=== PATIENT | female | born 1995 | race Caucasian/White ===

== ENCOUNTER 2017-01-08 04:04 | Inpatient (IN) | payer SELFPAY ==
[2017-01-08] MEDS ORDERED: NS 2,000 ML IV ONE (04:14)
[2017-01-08] MEDS ORDERED: ONDANSETRON 4 MG/2 ML VIAL IVP ONE (04:14)
--- NOTE | 2017-01-08 04:14 | EDPHY ---
H & P Stated Complaint: c/o R sided back pain and painful urination x 5 days, dx with uti yest HPI/ROS: HPI CHIEF COMPLAINT: Nausea, vomiting, recent urinary tract infection HISTORY OF PRESENT ILLNESS: This patient 21-year-old female otherwise healthy does not take any daily medications, she presents emergency room with ongoing bilateral flank pain worse on the right than left with associated nausea vomiting fever and not feeling well. She states around 1030AM earlier in the morning she developed dysuria and worsening right flank pain decided to go to urgent care where she was diagnosed with a kidney infection and given Levaquin. She went home was home around noon yesterday at 5 o'clock started feeling more ill. She was able to sleep slightly last night woke up at 3:00 a.m. or approximately an hour and half ago with worsening high fever generalized weakness nausea vomiting worsening bilateral flank pain. She decided come to the emergency room. Upon arrival to the emergency room she is noted to be somewhat ill-appearing, heart rate in the 140s, blood pressure is low in the 80s, and she is febrile to 39 degrees. She does tell me she has bilateral CVA pain with associated nausea vomiting. Denies chest pain or shortness of breath. denies being . Past Medical History: No significant medical history Past Surgical History: Denies recent surgical history Social History: denies daily use drugs alcohol tobacco products. Family History: Noncontributory ROS REVIEW OF SYSTEMS: A comprehensive 10 point review of systems is otherwise negative aside from elements mentioned in the history of present illness. Exam Constitutional appears nontoxic, however vital signs noted, triage nursing summary reviewed, vital signs reviewed, awake/alert. Vital signs noted increased heart rate, low blood pressure, fever Eyes normal conjunctivae and sclera, EOMI, PERRLA. HENT normal inspection, atraumatic, moist mucus membranes, no epistaxis, neck supple/ no meningismus, no raccoon eyes. Respiratory clear to auscultation bilaterally, normal breath sounds, no respiratory distress, no wheezing. Cardiovascular tachycardic,regular rhythm, no murmur, no edema, distal pulses normal. Gastrointestinal soft, non-tender, no rebound, no guarding, normal bowel sounds, no distension, no pulsatile mass. Genitourinary no CVA tenderness. Musculoskeletal no midline vertebral tenderness, full range of motion, no calf swelling, no tenderness of extremities, no meningismus, good pulses, neurovascularly intact. Skin pink, warm, & dry, no rash, skin atraumatic. Neurologic awake, alert and oriented x 3, AAOx3, moves all 4 extremities equally, motor intact, sensory intact, CN II-XII intact, normal cerebellar, normal vision, normal speech. Psychiatric normal mood/affect. Heme/Lymph/Immune no lymphadenopathy. 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 Re-evaluate closely. Re-evaluation: 0538AM: Patient just completed 2 L fluid bolus. Will repeat her lactic acid. Urinalysis pending at this time. Blood cultures have been pulled. I have reviewed her blood work so for white count elevated 19,000, elevated lactic acid. She will need to be admitted the hospital for urinary tract infection, pyelonephritis and sepsis. Will speak with the hospitalist service about admission. 0605AM: Patient is doing better. Blood pressure did come up to 101 systolic. Heart rate is improving. She is feeling better. She will be admitted to the hospital for UTI with sepsis. Pyelonephritis. Spoke with the hospitalist service Dr. Chavez agrees to admit the patient. IV Rocephin has been given. I am repeating lactic at this time. She has finished 2 L bolus. Critical Care: Total Critical Care Time Spent Managing this Patient: 65 Minutes. This time was spent Exclusively with this patient. This Care was exclusive of procedures. The Organ System/life at risk was tractk This Patient was in Critical Condition because Sepsis, UTI, Pyelo. Requiring Resuscitation. Source: Patient - Medical/Surgical History Hx Asthma: No Hx Chronic Respiratory Disease: No Hx Diabetes: No Hx Cardiac Disease: No Hx Renal Disease: No Hx Cirrhosis: No Hx Alcoholism: No Hx HIV/AIDS: No Hx Splenectomy or Spleen Trauma: No Other PMH: none - Social History Smoking Status: Never smoked Constitutional: Initial Vital Signs Temperature (C) 39.5 C H 01/08/17 04:08 Heart Rate 146 H 01/08/17 04:08 Respiratory Rate 16 01/08/17 04:08 Blood Pressure 86/64 L 01/08/17 04:08 O2 Sat (%) 99 01/08/17 04:08 O2 Delivery Mode Room Air Allergies/Adverse Reactions: No Known Allergies Allergy (Verified 01/08/17 04:11) Home Medications: Medication Instructions Recorded Acetaminophen [Tylenol ES 500 mg 1,000 mg PO PRN PRN 01/08/17 (*)] Ibuprofen [Motrin (*)] 200 mg PO PRN PRN 01/08/17 Promethazine HCl [Phenergan 12.5mg 12.5 mg PO Q6 PRN #30 tablet 01/11/17 tab] Sulfamethox/Tmp 800/160 mg 1 tab PO BID #14 tab 01/11/17 [Bactrim Ds] Medical Decision Making - Data Points Laboratory Results: Laboratory Results 01/08/17 04:30 01/08/17 04:30 Microbiology Results: MICROBIOLOGY 01/08/17 05:00 Blood Blood Culture - Final 01/08/17 04:30 Blood Blood Culture - Final Medications Given: Discontinued Medications Acetaminophen (Tylenol) 1,000 mg PO EDNOW ONE Stop: 01/08/17 04:16 Last Admin: 01/08/17 07:32 Dose: Not Given Acetaminophen (Tylenol) 650 mg PO Q4HRS PRN PRN Reason: Pain, Mild/Fever, Can Take PO Stop: 07/07/17 07:51 Last Admin: 01/09/17 05:15 Dose: 650 mg Acetaminophen (Tylenol) 1,000 mg PO Q8 [facility] Stop: 07/08/17 08:45 Last Admin: 01/11/17 16:22 Dose: 1,000 mg Alteplase, Recombinant (Cathflo Activase) 2 mg IVP PRN PRN PRN Reason: Per PICC line policy Stop: 07/07/17 10:03 Last Admin: 01/11/17 05:24 Dose: 2 mg Enoxaparin Sodium (Lovenox) 40 mg SC DAILY [facility] Stop: 07/07/17 08:59 Last Admin: 01/11/17 09:17 Dose: 40 mg Fentanyl (Sublimaze) 50 mcg IVP EDNOW ONE Stop: 01/08/17 04:26 Last Admin: 01/08/17 04:40 Dose: 50 mcg Hydromorphone HCl (Dilaudid) 0.2 - 0.4 mg IVP Q4HRS PRN PRN Reason: Pain, Severe Unable to Take PO Stop: 01/18/17 07:51 Last Admin: 01/10/17 02:04 Dose: 0.2 mg Sodium Chloride (Ns) 2,000 mls @ 0 mls/hr IV EDNOW ONE; Wide Open PRN Reason: Protocol Stop: 01/08/17 04:15 Last Admin: 01/08/17 04:31 Dose: 2,000 mls Ceftriaxone Sodium/Dextrose (Rocephin 1 Gm (Premix)) 50 mls @ 100 mls/hr IV EDNOW ONE PRN Reason: Protocol Stop: 01/08/17 04:44 Last Admin: 01/08/17 05:45 Dose: 50 mls Sodium Chloride (Ns) 1,000 mls @ 0 mls/hr IV ONCE ONE PRN Reason: Wide Open Stop: 01/08/17 06:28 Last Admin: 01/08/17 06:39 Dose: 1,000 mls Sodium Chloride (Ns) 1,000 mls @ 200 mls/hr IV CONT RAJESH Stop: 07/07/17 07:59 Last Admin: 01/10/17 05:37 Dose: 1,000 mls Ceftriaxone Sodium/Dextrose (Rocephin 1 Gm (Premix)) 50 mls @ 100 mls/hr IV DAILY RAJESH PRN Reason: Protocol Stop: 02/08/17 08:59 Last Admin: 01/11/17 09:17 Dose: 50 mls Norepinephrine/Sodium Chloride (Norepinephrine 8 Mcg/Ml (Premix)) 500 mls @ 0 mls/hr IV CONT RAJESH; Titrate PRN Reason: Protocol Stop: 07/07/17 10:29 Last Admin: 01/09/17 07:55 Dose: 500 mls Sodium Chloride (Ns) 1,000 mls @ 200 mls/hr IV CONT RAJESH Stop: 07/09/17 23:14 Last Admin: 01/10/17 23:28 Dose: 1,000 mls Ibuprofen (Motrin) 800 mg PO EDNOW ONE Stop: 01/08/17 04:19 Last Admin: 01/08/17 04:41 Dose: 800 mg Lorazepam (Ativan Injection) 1 mg IV ONCE ONE Stop: 01/11/17 12:31 Last Admin: 01/11/17 12:45 Dose: 1 mg Meperidine HCl (Demerol 25 Mg/Ml Syringe) 25 mg IVP ONCE ONE Stop: 01/09/17 20:59 Last Admin: 01/10/17 05:12 Dose: Not Given Ondansetron HCl (Zofran) 4 mg IVP EDNOW ONE Stop: 01/08/17 04:15 Last Admin: 01/08/17 04:41 Dose: 4 mg Ondansetron HCl (Zofran) 4 mg IVP Q4HRS PRN PRN Reason: Nausea/Vomiting, Can't Take PO Stop: 07/07/17 07:51 Last Admin: 01/10/17 19:37 Dose: 4 mg Oxycodone HCl (Oxycodone Ir) 10 mg PO Q4HRS PRN PRN Reason: Pain, Severe Able to Take PO Stop: 01/19/17 08:44 Last Admin: 01/10/17 19:37 Dose: 10 mg Promethazine HCl (Phenergan) 6.25 mg IVP Q6HRS PRN PRN Reason: Nausea/Vomiting, Can't Take PO Stop: 07/09/17 09:58 Last Admin: 01/11/17 09:03 Dose: 6.25 mg Promethazine HCl (Phenergan Rectal) 25 mg [place] ONCE ONE Stop: 01/11/17 09:29 Last Admin: 01/11/17 12:51 Dose: Not Given Departure - Departure Disposition: [facility] Acute Clinical Impression: Pyelonephritis Sepsis Qualifiers: Sepsis type: sepsis due to unspecified organism Qualified Code(s): A41.9 - Sepsis, unspecified organism Condition: Fair
[2017-01-08] MEDS ORDERED: ACETAMINOPHEN 500 MG TAB PO ONE (04:15)
[2017-01-08] MEDS ORDERED: IBUPROFEN 200 MG TAB PO ONE (04:18)
[2017-01-08] MEDS ORDERED: fentaNYL 100 MCG/2 ML INJ IVP ONE (04:25)
[2017-01-08 04:41] LABS: % IMMATURE GRANULYOCYTES 0.6 % (0.0-1.1); ABSOLUTE IMMATURE GRANULOCYTES 0.11 10^3/uL (0.00-0.10); ADD DIFF? NO; ADD MORPH? NO; ADD SCAN? NO; ATYPICAL LYMPHOCYTE FLAG 60 (0-99); FRAGMENT RBC FLAG 0 (0-99); HEMATOCRIT 36.7 % (38.0-47.0); HEMOGLOBIN 11.8 g/dL (12.6-16.3); LEFT SHIFT FLG 90 (0-99); LIPEMIA HEMOLYSIS FLAG 80 (0-99); MEAN CELL HEMOGLOBIN 26.9 pg (27.9-34.1); MEAN CELL HEMOGLOBIN CONCENTR. 32.2 g/dL (32.4-36.7); MEAN CELL VOLUME 83.8 fL (81.5-99.8); PLATELET CLUMPS FLAG 0 (0-99); PLATELET COUNT 257 10^3/uL (150-400); RED BLOOD CELL COUNT 4.38 10^6/uL (4.18-5.33); RED CELL DISTRIBUTION WIDTH 14.7 % (11.5-15.2)
[2017-01-08 04:50] LABS: INR 1.5 (0.83-1.16); PROTIME(PATIENT) 18.1 SEC (12.0-15.0)
[2017-01-08 04:51] LABS: APTT 34.4 SEC (23.0-38.0)
[2017-01-08 04:55] LABS: ALANINE AMINOTRANSFERASE 24 IU/L (9-52); ALBUMIN 3.5 g/dL (3.5-5.0); ALKALINE PHOSPHATASE 66 IU/L (38-126); ANION GAP 15 mEq/L (8-16); ASPARTATE AMINOTRANSFERASE 21 IU/L (14-46); BILIRUBIN,TOTAL 0.8 mg/dL (0.1-1.4); BILIRUBIN-CONJUGATED 0.3 mg/dL (0.0-0.5); BILIRUBIN-UNCONJUGATED 0.5 mg/dL (0.0-1.1); CALCIUM 8.5 mg/dL (8.5-10.4); CARBON DIOXIDE 17 mEq/l (22-31); CHLORIDE 107 mEq/L (97-110); GLOMERULAR FILTRATION RATE > 60; GLUCOSE 120 mg/dL (70-100); POTASSIUM 4.1 mEq/L (3.5-5.2); SODIUM 139 mEq/L (134-144); TOTAL PROTEIN 6.4 g/dL (6.3-8.2)
[2017-01-08] MEDS ORDERED: NS 1,000 ML IV ONE (06:27)
[2017-01-08 06:36] LABS: COLOR YELLOW; LEUKOCYTE ESTERASE,URINE 1+ (NEGATIVE); NITRITE,URINE NEGATIVE (NEGATIVE)
[2017-01-08 06:42] LABS: BACTERIA 2+ /hpf (NONE SEEN); MUCUS TRACE /lpf (NONE-1+); RBC,URINE 50-182 /hpf (0-3); WBC,URINE 50-182 /hpf (0-3)
[2017-01-08] MEDS ORDERED: ONDANSETRON DISINTEGRATING 4 MG TAB PO PRN (07:52)
--- NOTE | 2017-01-08 08:36 | GHP ---
[f rep st] HISTORY AND PHYSICAL DATE OF ADMISSION: 01/08/2017 HISTORY OF PRESENT ILLNESS: The patient is a pleasant 21-year-old female with no past medical histo ry, presents with 10 days of urinary symptoms followed by about a day and a half of back pain, and t hen she saw Urgent Care yesterday where she was given a prescription for levofloxacin. She returned home, and then she had an episode of vomiting. She has also had some subjective fevers and chills and back pain. She has had some shortness of breath associated with deep inspiration. She has no p revious past medical history. She does not have a long history of urinary tract infections. REVIEW OF SYSTEMS: Complete 10-point review of systems conducted negative except as noted in the HP I. PAST MEDICAL HISTORY: None. ALLERGIES: None. HOME MEDICATIONS: None. SOCIAL HISTORY: [employer] student. No tobacco, rare alcohol, although I noticed she has an alcohol-relate d ER visit. FAMILY HISTORY: Reviewed and unremarkable. PHYSICAL EXAMINATION: PRESENTING VITALS: Temp 39.5, blood pressure 86/54, pulse 146, breathing 16 times a minute, 98% on room air. Pulse is now 100, and her blood pressure is 85. She is . GENERAL: No acute distress. HEENT: Sclerae anicteric. Oropharynx clear. Mucous membranes ar e moist. NECK: Supple without lymphadenopathy or JVD. LUNGS: Clear to auscultation bilaterally. HEART: S1, S2. ABDOMEN: Soft, nontender, nondistended. There is CVA tenderness bilaterally. EX TREMITIES: Lower extremities without edema. Calves nontender. SKIN: Without rash. NEUROLOGIC: Nonfocal. LABORATORY DATA: White count 19 with a left shift, hematocrit 36, platelets are 257,000. INR is 1. 5. Venous lactate 3.2 at 4:30 in the morning, now at 1.3 at 6:20 in the morning. Sodium 139, potas sium 4.1, chloride 107, bicarb 17, BUN 9, creatinine 1.0, anion gap 15, glucose 120, LFTs and lipase are normal. Urinalysis shows -180 red cells, white cells. There is no imagi ng. I have discussed the case with Dr. Rudolph Longoria. ASSESSMENT/PLAN: A 21-year-old female presents with pyelonephritis and sepsis. 1. Sepsis. Source is pyelonephritis. She received the appropriate fluid bolus with decrease in he r serum lactate, I think from relatively low blood pressures due to her young age. 2. Pyelonephritis. This is a urinary source. She received ceftriaxone in the emergency department . I will continue it. 3. Tachycardia secondary to distributive shock from sepsis, improving. We will continue IV fluid s upport. 4. Prophylaxis. She is moderate risk given her degree of illness. Will start her on low-molecular heparin prophylaxis. 5. Disposition: Stepdown unit inpatient. /[id number]/MODL
[2017-01-08] MEDS: HYDROmorphONE/DILAUDID 1 MG/ML SYR IVP PRN ×3 (09:12→22:09)
[2017-01-08] MEDS: ENOXAPARIN 40 MG/0.4 ML SYR SC SCH (09:13)
[2017-01-08] MEDS ORDERED: ALTEPLASE 2 MG VIAL IVP PRN (10:04)
[2017-01-08 13:37] LABS: MIXED VENOUS O2 SATURATION 94 % (65-75)
--- NOTE | 2017-01-08 15:02 | GCON ---
[f rep st] CONSULTATION MOBILITY ARCHITECT CONSULTATION REASON FOR ADMISSION: Urinary tract infection, pyelonephritis, sepsis. HISTORY OF PRESENTING ILLNESS: The patient is an extremely pleasant 21-year-old female without any known past medical history. She presents with 10 days of increasing urinary tract symptoms which is associated with right low back pain. She was seen in the urgent care the day before admission, beg an on levofloxacin. She had some nausea and vomiting thereafter, and returned for medical care. He r blood pressure was somewhat low in the emergency room, and she was subsequently admitted. In discussion with the patient, she states overall she feels somewhat better. Her appetite is impro ving. Her low back pain is still present but tolerable. She denies any chest pain, pleuritic-type chest pain or angina equivalent. No fever or night sweats. She did have some fevers and chills dave or to this, but these have resolved. PAST MEDICAL HISTORY: None. PAST SURGICAL HISTORY: None. ALLERGIES: None known to medications. SOCIAL HISTORY: No history of tobacco use. Infrequent alcohol use. Work history: She is a [employer], is currently doing an quality internship. She is single, without children. MEDICATION AT HOME: Levofloxacin. PHYSICAL EXAM: VITAL SIGNS: Blood pressure is 71/42, pulse is 92, respirations 21, temperature 37. 1, oxygen saturation 97% on room air. GENERAL: She is a well-developed, well-nourished 21-year-old female, who is resting comfortably with mild low back pain. HEENT: Eyes are CHRISTINA, EOMI. Throat s hows no erythema or tonsillar hypertrophy. NECK: Supple. No cervical adenopathy. HEART: Regular rate and rhythm without murmurs, rubs, or gallops. LUNGS: Clear to auscultation. No wheeze or rh onchi. ABDOMEN: Soft, nontender. She does have some right CVA tenderness. Bowel sounds are prese nt. EXTREMITIES: No clubbing, cyanosis, or edema. LABORATORIES: White count is 19,000, hemoglobin 11, hematocrit 36, platelet count is 257. INR is 1 .5. Sodium 139, potassium 4.1, chloride 107, CO2 is 17, BUN 9, creatinine 1, glucose is 120. Urina lysis pH is 5, specific gravity 1.014, 2+ protein, 2+ blood, 50-182 rbc's, 2+ bacteria. IMPRESSION: 1. Urinary tract infection with probable pyelonephritis. 2. Hypotension. 3. The patient does not appear septic at this time. RECOMMENDATIONS: 1. Continue current antibiotic coverage. 2. Increase IV fluids. 3. We will check an ultrasound of her kidneys. 4. DVT and PE prophylaxis. 5. Stress ulcer prophylaxis. 6. Ambulation. /[id number]/MODL
--- NOTE | 2017-01-08 15:41 | HOSPPROG ---
Hospitalist Progress Note Assessment/Plan: #Severe sepsis: due to pyelo. Aggressive IVF, PICC line. Sepsis protocol. Ceftriaxone. U/S pending #Leukocytosis: due to above. urine/blood cultures pending #Lactic acidosis: due to sepsis. Resolved with IVFs #Tachycardia: resolved #Hypotension: dehydration, sepsis. Improving with IVFs #Fever: due to pyelo #Diet: regular #DVT ppx: Lovenox Disp: warrants ICU admission with severe sepsis, requires IV abx and IVFs Critical care time spent: 30 min evaluating bedside, coordinating PICC and tx plan Subjective: c/o flank pain. Dizzy with standing Objective: Vital Signs Temp Pulse Resp BP Pulse Ox 36.6 C 87 22 H 86/53 L 99 01/08/17 12:00 01/08/17 13:27 01/08/17 13:27 01/08/17 13:27 01/08/17 13:27 01/07/17 01/08/17 01/09/17 05:59 05:59 05:59 Intake Total 3000 Balance 3000 PT 18.1 SEC (12.0-15.0) H 01/08/17 04:30 INR 1.50 (0.83-1.16) H 01/08/17 04:30 - Physical Exam Constitutional: no apparent distress, other Eyes: PERRL Ears, Nose, Mouth, Throat: dry mucous membranes Cardiovascular: regular rate and rhythym, no murmur, rub, or gallop Respiratory: no respiratory distress, no rales or rhonchi Gastrointestinal: normoactive bowel sounds, soft, non-tender abdomen Genitourinary: other (right suprapubic and BL CVA TTP) Skin: warm Musculoskeletal: full muscle strength Neurologic: AAOx3, CN II-XII Intact Psychiatric: interacting appropriately ICD10 Worksheet Patient Problems: Problems Problem Status Onset Pyelonephritis Acute Sepsis Acute
[2017-01-08] MEDS: ACETAMINOPHEN 325 MG TAB PO PRN ×2 (18:12→22:09)
[2017-01-08 18:23] LABS: MIXED VENOUS O2 SATURATION 95 % (65-75)
[2017-01-08 18:41] LABS: MIXED VENOUS O2 SATURATION 95 % (65-75)
[2017-01-08] MEDS: NOREPINEPHRINE/NS 500 ML IV SCH (19:26)
[2017-01-09 04:25] LABS: ADD DIFF? YES; ADD MORPH? NO; ATYPICAL LYMPHOCYTE FLAG 0 (0-99); FRAGMENT RBC FLAG 0 (0-99); HEMATOCRIT 33.3 % (38.0-47.0); HEMOGLOBIN 10.5 g/dL (12.6-16.3); LIPEMIA HEMOLYSIS FLAG 80 (0-99); MEAN CELL HEMOGLOBIN 26.9 pg (27.9-34.1); MEAN CELL HEMOGLOBIN CONCENTR. 31.5 g/dL (32.4-36.7); MEAN CELL VOLUME 85.2 fL (81.5-99.8); MEAN PLATELET VOLUME 10.3 fL (8.7-11.7); PLATELET CLUMPS FLAG 0 (0-99); PLATELET COUNT 264 10^3/uL (150-400); RED BLOOD CELL COUNT 3.91 10^6/uL (4.18-5.33); RED CELL DISTRIBUTION WIDTH 15.2 % (11.5-15.2)
[2017-01-09 04:36] LABS: ADD SCAN? NO; LEFT SHIFT FLG 220 (0-99)
[2017-01-09 04:38] LABS: ANION GAP 9 mEq/L (8-16); CALCIUM 7.2 mg/dL (8.5-10.4); CARBON DIOXIDE 16 mEq/l (22-31); CHLORIDE 116 mEq/L (97-110); CREATININE 0.8 mg/dL (0.6-1.0); GLOMERULAR FILTRATION RATE > 60; GLUCOSE 122 mg/dL (70-100); POTASSIUM 4.1 mEq/L (3.5-5.2); SODIUM 141 mEq/L (134-144)
[2017-01-09] MEDS: ACETAMINOPHEN 325 MG TAB PO PRN (05:15)
[2017-01-09 05:18] LABS: PLATELET ESTIMATE ADEQUATE (ADEQ)
[2017-01-09 05:22] LABS: HYPOCHROMIA 1+; MICROCYTES 1+
[2017-01-09] MEDS: HYDROmorphONE/DILAUDID 1 MG/ML SYR IVP PRN (05:27)
[2017-01-09] MEDS: NOREPINEPHRINE/NS 500 ML IV SCH (07:55)
[2017-01-09] MEDS: ENOXAPARIN 40 MG/0.4 ML SYR SC SCH (08:41)
--- NOTE | 2017-01-09 08:50 | HOSPPROG ---
Hospitalist Progress Note Assessment/Plan: 21 yo f w pyelonephritis and sepsis sepsis: source is urine on levophed will tolerate MAP of 60 given lowish baseline bp lactate improved pyelonephritis: continue ceftriaxone day 07/20 abx Ucx, blood cx pending tachycardia: sinus suspect 07/12 sepsis but check tsh for completeness proph: lmwh dispo: stepdown Subjective: case d/w dr bridges. tele: AF (interp by id). remains on levophed Objective: Vital Signs Temp Pulse Resp BP Pulse Ox 37.9 C 94 21 H 100/67 94 01/09/17 08:00 01/09/17 08:00 01/09/17 08:00 01/09/17 08:00 01/09/17 08:00 Laboratory Results 01/09/17 03:50 01/09/17 03:50 01/08/17 01/09/17 01/10/17 05:59 05:59 05:59 Intake Total 34694 Output Total 2700 Balance 41230 PT 18.1 SEC (12.0-15.0) H 01/08/17 04:30 INR 1.50 (0.83-1.16) H 01/08/17 04:30 - Physical Exam Constitutional: no apparent distress, appears nourished Eyes: PERRL, anicteric sclera Ears, Nose, Mouth, Throat: moist mucous membranes, hearing normal Cardiovascular: no murmur, rub, or gallop, tachycardia Respiratory: no respiratory distress, other (scattered crackles) Gastrointestinal: normoactive bowel sounds, soft, non-tender abdomen Genitourinary: no bladder fullness, No ledesma in urethra Skin: warm, normal color Musculoskeletal: full muscle strength, no muscle tenderness Neurologic: AAOx3 ICD10 Worksheet Patient Problems: Problems Problem Status Onset Pyelonephritis Acute Sepsis Acute
[2017-01-09] MEDS: oxyCODONE IR 5 MG TAB PO PRN ×3 (09:08→20:02)
--- NOTE | 2017-01-09 09:21 | PDINTPN ---
Hospice Admitting Clerk Progress Note Assessment/Plan: Assessment/Plan: * Urinary tract infection-continue current antibiotics * Pyelonephritis * Shock-improved since yesterday -wean off Levophed likely today * Out of bed to chair. Begin ambulating in the halls. Subjective: Feels markedly improved. Still complaining of some right-sided low back pain. Objective: Vital Signs Temp Pulse Resp BP Pulse Ox 37.9 C 94 21 H 100/67 94 01/09/17 08:00 01/09/17 08:00 01/09/17 08:00 01/09/17 08:00 01/09/17 08:00 Laboratory Results 01/09/17 03:50 01/09/17 03:50 01/08/17 01/09/17 01/10/17 05:59 05:59 05:59 Intake Total 77087 Output Total 2700 Balance 31870 PT 18.1 SEC (12.0-15.0) H 01/08/17 04:30 INR 1.50 (0.83-1.16) H 01/08/17 04:30 Physical Exam - Physical Exam General Appearance: WD/WN, alert, no apparent distress EENT: PERRL/EOMI, normal ENT inspection, pharynx normal, TMs normal Neck: non-tender, full range of motion, supple, normal inspection Respiratory: chest non-tender, lungs clear, normal breath sounds Cardiac/Chest: normal peripheral pulses, regular rate, rhythm Abdomen: normal bowel sounds, non-tender, soft Pelvic Exam: deferred Rectal: deferred ICD10 Worksheet Patient Problems: Problems Problem Status Onset Pyelonephritis Acute Sepsis Acute
[2017-01-09] MEDS: ACETAMINOPHEN 500 MG TAB PO SCH ×2 (12:59→21:16)
[2017-01-09] MEDS: NS 1,000 ML IV SCH ×2 (12:59→17:09)
[2017-01-09] MEDS ORDERED: MEPERIDINE 25 MG/ML SYR IVP ONE (20:58)
[2017-01-09] MEDS: ONDANSETRON 4 MG/2 ML VIAL IVP PRN (21:55)
[2017-01-10] MEDS: HYDROmorphONE/DILAUDID 1 MG/ML SYR IVP PRN (02:04)
[2017-01-10] MEDS: NS 1,000 ML IV SCH ×2 (02:04→05:37)
[2017-01-10] MEDS: ACETAMINOPHEN 500 MG TAB PO SCH ×3 (05:36→21:03)
[2017-01-10] MEDS: ONDANSETRON 4 MG/2 ML VIAL IVP PRN ×2 (08:05→19:37)
[2017-01-10 09:04] LABS: % IMMATURE GRANULYOCYTES 0.6 % (0.0-1.1); ABSOLUTE IMMATURE GRANULOCYTES 0.11 10^3/uL (0.00-0.10); ADD DIFF? NO; ADD MORPH? NO; ADD SCAN? NO; ATYPICAL LYMPHOCYTE FLAG 30 (0-99); FRAGMENT RBC FLAG 0 (0-99); HEMOGLOBIN 9.6 g/dL (12.6-16.3); LEFT SHIFT FLG 40 (0-99); LIPEMIA HEMOLYSIS FLAG 80 (0-99); MEAN CELL HEMOGLOBIN 27.3 pg (27.9-34.1); MEAN CELL VOLUME 85.2 fL (81.5-99.8); PLATELET CLUMPS FLAG 0 (0-99); PLATELET COUNT 206 10^3/uL (150-400); RED BLOOD CELL COUNT 3.52 10^6/uL (4.18-5.33); RED CELL DISTRIBUTION WIDTH 15.4 % (11.5-15.2)
[2017-01-10 09:21] LABS: ANION GAP 6 mEq/L (8-16); CALCIUM 7.2 mg/dL (8.5-10.4); CARBON DIOXIDE 20 mEq/l (22-31); CHLORIDE 115 mEq/L (97-110); CREATININE 0.8 mg/dL (0.6-1.0); GLOMERULAR FILTRATION RATE > 60; GLUCOSE 85 mg/dL (70-100); POTASSIUM 3.5 mEq/L (3.5-5.2); SODIUM 141 mEq/L (134-144)
--- NOTE | 2017-01-10 09:33 | PDINTPN ---
C.O.D. Biller Progress Note Assessment/Plan: Assessment/Plan: * Urinary tract infection-continue current antibiotics * Pyelonephritis * Shock-resolved * Out of bed to chair. Begin ambulating in the halls. * Disposition-home versus floor Subjective: Comfortable. Objective: Vital Signs Temp Pulse Resp BP Pulse Ox 37.1 C 87 26 H 103/71 91 L 01/10/17 08:00 01/10/17 09:00 01/10/17 09:00 01/10/17 09:00 01/10/17 09:00 Laboratory Results 01/10/17 08:55 01/10/17 08:55 01/09/17 01/10/17 01/11/17 05:59 05:59 05:59 Intake Total 29995 4373.3 Output Total 2700 2950 500 Balance 73576 1423.3 -500 PT 18.1 SEC (12.0-15.0) H 01/08/17 04:30 INR 1.50 (0.83-1.16) H 01/08/17 04:30 Physical Exam - Physical Exam General Appearance: WD/WN, alert, no apparent distress EENT: PERRL/EOMI, normal ENT inspection, pharynx normal, TMs normal Neck: non-tender, full range of motion, supple, normal inspection Respiratory: chest non-tender, lungs clear, normal breath sounds Cardiac/Chest: normal peripheral pulses, regular rate, rhythm Abdomen: normal bowel sounds, non-tender, soft Pelvic Exam: deferred Rectal: deferred Skin: normal color, warm/dry Extremities: normal range of motion, non-tender, normal inspection, normal capillary refill Neuro/Psych: no motor/sensory deficits, alert, normal mood/affect, oriented x 3 ICD10 Worksheet Patient Problems: Problems Problem Status Onset Pyelonephritis Acute Sepsis Acute
[2017-01-10] MEDS: ENOXAPARIN 40 MG/0.4 ML SYR SC SCH (09:59)
--- NOTE | 2017-01-10 10:04 | HOSPPROG ---
Hospitalist Progress Note Assessment/Plan: 21 yo f w pyelonephritis and sepsis sepsis: source is urine septic physiology resolved pyelonephritis: continue ceftriaxone day 08/17 abx Ucx, blood cx pending tachycardia: sinus suspect 2/2 sepsis but check tsh for completeness tsh slightly high resolved proph: lmwh dispo: to floor Subjective: febrile overnight. some nausea. case d/w dr bridges. tele: less tachycardic (interp by me) Objective: Vital Signs Temp Pulse Resp BP Pulse Ox 37.1 C 87 26 H 103/71 91 L 01/10/17 08:00 01/10/17 09:00 01/10/17 09:00 01/10/17 09:00 01/10/17 09:00 Laboratory Results 01/10/17 08:55 01/10/17 08:55 01/09/17 01/10/17 01/11/17 05:59 05:59 05:59 Intake Total 03891 4373.3 Output Total 2700 2950 500 Balance 37703 1423.3 -500 PT 18.1 SEC (12.0-15.0) H 01/08/17 04:30 INR 1.50 (0.83-1.16) H 01/08/17 04:30 - Physical Exam Constitutional: no apparent distress, appears nourished Eyes: PERRL, anicteric sclera Ears, Nose, Mouth, Throat: moist mucous membranes, hearing normal Cardiovascular: regular rate and rhythym, no murmur, rub, or gallop, No tachycardia Respiratory: no respiratory distress, no rales or rhonchi Gastrointestinal: normoactive bowel sounds, soft, non-tender abdomen Genitourinary: No ledesma in urethra Skin: warm, normal color Musculoskeletal: full muscle strength, no muscle tenderness Neurologic: AAOx3, sensation intact bilaterally Psychiatric: interacting appropriately ICD10 Worksheet Patient Problems: Problems Problem Status Onset Pyelonephritis Acute Sepsis Acute
[2017-01-10] MEDS: oxyCODONE IR 5 MG TAB PO PRN (19:37)
[2017-01-10] MEDS: PROMETHAZINE HCL 25 MG/ML INJ IVP PRN (23:14)
[2017-01-10] MEDS ORDERED: NS 1,000 ML IV SCH (23:15)
[2017-01-11] MEDS: ACETAMINOPHEN 500 MG TAB PO SCH ×2 (05:24→16:22)
[2017-01-11 05:39] LABS: % IMMATURE GRANULYOCYTES 0.8 % (0.0-1.1); ABSOLUTE IMMATURE GRANULOCYTES 0.09 10^3/uL (0.00-0.10); ADD DIFF? NO; ADD MORPH? NO; ADD SCAN? NO; ATYPICAL LYMPHOCYTE FLAG 30 (0-99); FRAGMENT RBC FLAG 0 (0-99); HEMATOCRIT 29.3 % (38.0-47.0); HEMOGLOBIN 9.2 g/dL (12.6-16.3); LEFT SHIFT FLG 10 (0-99); LIPEMIA HEMOLYSIS FLAG 80 (0-99); MEAN CELL HEMOGLOBIN 26.2 pg (27.9-34.1); MEAN CELL HEMOGLOBIN CONCENTR. 31.4 g/dL (32.4-36.7); MEAN CELL VOLUME 83.5 fL (81.5-99.8); MEAN PLATELET VOLUME 9.9 fL (8.7-11.7); PLATELET CLUMPS FLAG 10 (0-99); PLATELET COUNT 214 10^3/uL (150-400); RED BLOOD CELL COUNT 3.51 10^6/uL (4.18-5.33); RED CELL DISTRIBUTION WIDTH 15.4 % (11.5-15.2)
[2017-01-11 05:52] LABS: ANION GAP 8 mEq/L (8-16); CALCIUM 7.4 mg/dL (8.5-10.4); CARBON DIOXIDE 21 mEq/l (22-31); CHLORIDE 109 mEq/L (97-110); CREATININE 0.8 mg/dL (0.6-1.0); GLOMERULAR FILTRATION RATE > 60; GLUCOSE 108 mg/dL (70-100); POTASSIUM 3.2 mEq/L (3.5-5.2); SODIUM 138 mEq/L (134-144)
[2017-01-11 07:28] VITALS: RESP 16
[2017-01-11] MEDS: PROMETHAZINE HCL 25 MG/ML INJ IVP PRN (09:03)
[2017-01-11] MEDS: ENOXAPARIN 40 MG/0.4 ML SYR SC SCH (09:17)
[2017-01-11] MEDS ORDERED: PROMETHAZINE HCL 25 MG SUPPR PR ONE (09:28)
--- NOTE | 2017-01-11 09:30 | HOSPPROG ---
Hospitalist Progress Note Assessment/Plan: 21 yo f w pyelonephritis and sepsis sepsis: source is urine septic physiology resolved pyelonephritis: continue ceftriaxone day 08/17 abx Ucx, blood cx pending tachycardia: sinus suspect 2/2 sepsis but check tsh for completeness tsh slightly high resolved proph: lmwh dispo: home today > 30 minutes Subjective: afebrile. nauseated Objective: Vital Signs Temp Pulse Resp BP Pulse Ox 37.1 C 73 16 127/90 H 91 L 01/11/17 07:26 01/11/17 07:26 01/11/17 07:26 01/11/17 07:26 01/11/17 07:26 Laboratory Results 01/11/17 05:30 01/11/17 05:30 01/10/17 01/11/17 01/12/17 05:59 05:59 05:59 Intake Total 4373.3 Output Total 2950 500 Balance 1423.3 -500 PT 18.1 SEC (12.0-15.0) H 01/08/17 04:30 INR 1.50 (0.83-1.16) H 01/08/17 04:30 - Physical Exam Constitutional: no apparent distress, appears nourished Eyes: PERRL, anicteric sclera Ears, Nose, Mouth, Throat: moist mucous membranes, hearing normal Cardiovascular: regular rate and rhythym, no murmur, rub, or gallop, No tachycardia Respiratory: no respiratory distress, no rales or rhonchi Gastrointestinal: normoactive bowel sounds, soft, non-tender abdomen Genitourinary: no bladder fullness, No ledesma in urethra Skin: warm, normal color Musculoskeletal: full muscle strength Neurologic: AAOx3 ICD10 Worksheet Patient Problems: Problems Problem Status Onset Pyelonephritis Acute Sepsis Acute
[2017-01-11] MEDS ORDERED: LORazepam 2 MG/ML INJ IV ONE (12:30)
[2017-01-11 15:39] VITALS: BP 136/96; PULSE 82; TEMP 100.1; O2SAT 85
--- NOTE | 2017-01-11 17:29 | GDS ---
[f rep st] DISCHARGE SUMMARY DISCHARGE DIAGNOSES: 1. Sepsis. 2. Pyelonephritis. 3. Nausea. HOSPITAL COURSE: Please see admission history and physical by Dr. Derik Chavez. The patient pres ented with 10 days of urinary symptoms and back pain and fever consistent with the diagnosis of pyel onephritis in the setting of very positive UA. She received IV fluids, was admitted to step down. She actually required pressors briefly in the form of Levophed. Her blood cultures were negative. While here, she grew a gram-negative alexia [place] [employer]. She received 5 days of ceftriaxone whil e here and is discharged on Bactrim and antinausea medicines. The barrier to discharge at this poin t in time is resolution of her nausea. /[id number]/MODL
== END 2017-01-11 17:35 | disposition home or self-care (01) | DRG 872 ==
LOC: F2N 08:39 → F3E 01-10 11:59
PROVIDERS: ADMIT Internal Medicine; ATTEND Internal Medicine
PROC: 02HV33Z Insertion of Infusion Device into Superior Vena Cava, Percutaneous Approach (ICD-10-PCS; principal; 2017-01-08)
DX: A41.9 Sepsis, unspecified organism (principal); N12 Tubulo-interstitial nephritis, not specified as acute or chronic
CPT/HCPCS: 96365; C1751; J0696; J1170; J1650; J2060; J2405; J2550; J2997; J3010